=== PATIENT | male | born 1980 | race Caucasian/White ===

== ENCOUNTER 2018-04-29 22:56 | Inpatient (IN) | END 2018-05-01 17:35 | disposition home or self-care (01) | DRG 310 ==

== ENCOUNTER 2019-01-02 13:17 | Emergency (ER) | payer MEDICAID ==
[~2019-01-02] VITALS: Ht 175.3 cm; Wt 91.3 kg
[~2019-01-02 13:17] MED LIST: ASPI-831 PO; METO-448 PO
[2019-01-02 13:27] VITALS: Ht 175.3 cm; Wt 91.3 kg
[2019-01-02] MEDS ORDERED: IBUP800T48 PO (16:29)
--- NOTE | 2019-01-02 16:32 | ERD ---
ER Documentation Chief Complaint Chief Complaint PT BIB SELF FOR CP 12/23 NON-RADIATING X 1 WEEK HPI This is a 38-year-old male with no past medical history the presents to the emergency department complaining of chest pain for 1 week. The patient states the chest pain is a stabbing-like pain. Is exacerbated by movement. He denies any recent trauma to his chest wall. He said no recent travel or prolonged immobilization denies any shortness of breath at rest or exertion. The pain is 10 out of 10 in intensity. He did not take any analgesic medication prior to arrival. The patient does not smoke tobacco and has no history of coronary artery disease in his first-degree relatives. ROS All systems reviewed and are negative except as per history of present illness. Medications Home Meds Active Scripts Ibuprofen* (Motrin*) 800 Mg Tab, 800 MG PO Q6H PRN for PAIN AND OR ELEVATED TEMP, #30 TAB Prov:FAUSTO COPE MD 01/02/19 Aspirin (Aspirin) 81 Mg Chew, 81 MG PO DAILY for 30 Days, #30 TAB Prov:ANUM MAYER MD 04/30/18 Metoprolol Tartrate* (Lopressor*) 25 Mg Tab, 12.5 MG PO Q12 for 14 Days, #30 TAB Prov:ANUM MAYER MD 04/30/18 Allergies Allergies: Coded Allergies: No Known Allergy (Unverified , 01/02/19) PMhx/Soc History of Surgery: No Anesthesia Reaction: No Hx Neurological Disorder: No Hx Respiratory Disorders: No Hx Cardiac Disorders: No Hx Psychiatric Problems: No Hx Miscellaneous Medical Probl: No Hx Alcohol Use: No Hx Substance Use: No Hx Tobacco Use: No Smoking Status: Never smoker Physical Exam Vitals Vital Signs Date Temp Pulse Resp B/P (MAP) Pulse Ox O2 O2 Flow FiO2 Time Delivery Rate 01/02/19 98.6 79 18 141/92 100 13:27 (108) Physical Exam Constitutional:Well-developed. Well-nourished. HEENT:Normocephalic. Atraumatic.Pupils were equal round reactive to light. Moist mucous membranes.No tonsillar exudates. Neck: No nuchal rigidity. No lymphadenopathy. No posterior cervical spine tenderness or step-offs. Respiratory: Not using accessory muscles of respiration.Lungs were clear to auscultation bilaterally. No rhonchi. No rales. No wheezing. Cardiovascular: Regular rate regular rhythm.No murmurs. No rubs were appr eciated.S1, S2 normal. Distal pulses are palpable 2+ bilaterally. Bilateral reproducible chest wall tenderness with no crepitus no ecchymosis no flail chest GI: Abdomen was soft. Nontender. Non Distended. No pulsatile abdominal masses or bruits. No rebound. No guarding. Bowel sounds were present and normal. Muscle skeletal: Full range of motion of both the upper and lower extremities bilaterally.Normal muscle tone.No assymetrical calf tenderness or swelling. Skin: No petechia, no purpura. No lesions on the palms or the soles of the feet. No maculopapular rash. NEURO: Patient was alert, awake, orientated x3.No facial droop. Gait observed and normal with no ataxia.Speech had regular rate and rhythm. No focal neurological deficits. Result Diagram: 01/02/19 1452 01/02/19 1452 Results 24 hrs Laboratory Tests Test 01/02/19 14:52 White Blood Count 8.9 10^3/ul Red Blood Count 5.65 10^6/ul Hemoglobin 16.3 g/dl Hematocrit 46.8 % Mean Corpuscular Volume 82.8 fl Mean Corpuscular Hemoglobin 28.8 pg Mean Corpuscular Hemoglobin Concent 34.8 g/dl Red Cell Distribution Width 12.4 % Platelet Count 263 10^3/UL Mean Platelet Volume 10.9 fl Immature Granulocytes % 0.200 % Neutrophils % 70.6 % Lymphocytes % 21.2 % Monocytes % 6.1 % Eosinophils % 1.2 % Basophils % 0.7 % Nucleated Red Blood Cells % 0.0 /100WBC Immature Granulocytes # 0.020 10^3/ul Neutrophils # 6.3 10^3/ul Lymphocytes # 1.9 10^3/ul Monocytes # 0.5 10^3/ul Eosinophils # 0.1 10^3/ul Basophils # 0.1 10^3/ul Nucleated Red Blood Cells # 0.0 10^3/ul Prothrombin Time 12.9 Sec Prothrombin Time Ratio 1.0 INR International Normalized Ratio 0.96 Activated Partial Thromboplast Time 28.9 Sec Sodium Level 145 mmol/L Potassium Level 4.0 mmol/L Chloride Level 104 mmol/L Carbon Dioxide Level 27 mmol/L Anion Gap 14 Blood Urea Nitrogen 20 mg/dl Creatinine 0.72 mg/dl Est Glomerular Filtrat Rate mL/min > 60 mL/min Glucose Level 115 mg/dl Calcium Level 10.0 mg/dl Total Bilirubin 0.8 mg/dl Direct Bilirubin 0.00 mg/dl Indirect Bilirubin 0.8 mg/dl Aspartate Amino Transf (AST/SGOT) 26 IU/L Alanine Aminotransferase (ALT/SGPT) 32 IU/L Alkaline Phosphatase 92 IU/L Creatine Kinase 119 IU/L Creatine Kinase Index 0.4 Creatinine Kinase MB (Mass) 0.47 ng/ml Troponin I < 0.012 ng/ml B-Type Natriuretic Peptide 24 PG/ML Total Protein 8.2 g/dl Albumin 4.8 g/dl Globulin 3.40 g/dl Albumin/Globulin Ratio 1.41 Procedures/MDM The patient presented to the emergency department complaining of chest pain. My clinical evaluation and workup was to distinguish minor causes of chest pain from acute life threatening cardiopulmonary causes such as myocardial infarction, pulmonary embolism, aortic dissection, esophageal rupture, cardiac tamponade, 12 Lead EKG tracing ordered and reviewed by myself showed: Normal sinus rhythm of 78 bpm and no arrhythmia. WI interval normal. QRS duration normal. No ST segment elevation No ST segment depression. No changes consistent with acute ischemia. The patients chest pain was reproduced by palpation and horizontal flexion of the arms. It was my clinical impression that the pain was a result of inflammation of the skin and subcutaneous structures of the chest wall versus my ocardial ischemia. I felt the patient had low-risk chest pain and could therefore be safely discharged with close follow-up. Departure Diagnosis: Primary Impression: Costochondritis Condition: Fair Patient Instructions: CostFAUSTO Pérez MD Jan 02, 2019 16:32
[2019-01-02 16:39] VITALS: BP 134/77; PULSE 70; RESP 18
== END 2019-01-02 17:15 | disposition home or self-care (01) ==
LOC: E/R 13:17
DX: M94.0 Chondrocostal junction syndrome [Tietze] (principal); Z79.82 Long term (current) use of aspirin
CPT/HCPCS: 71045; 80053; 82550; 82553; 83880; 84484; 85025; 85610; 85730; 93005; Z7502

== ENCOUNTER 2019-02-23 04:46 | Emergency (ER) | payer MEDICAID ==
[~2019-02-23] VITALS: Ht 177.8 cm; Wt 94.3 kg
[~2019-02-23 04:46] MED LIST changes: +IBUP800T48 PO
[2019-02-23 04:52] VITALS: BP 141/88; PULSE 87; RESP 20; Ht 177.8 cm; Wt 94.3 kg
[2019-02-23] MEDS ORDERED: KETOROLAC 60 MG INJ IM STA (06:22)
[2019-02-23] MEDS ORDERED: DIAZEPAM 5 MG TAB PO ONE (06:30)
[2019-02-23] MEDS ORDERED: DEXAMETHASONE 10 MG/ML 1 ML INJ IM ONE (06:30)
[2019-02-23] MEDS ORDERED: CYCL10TA7 PO (07:57)
[2019-02-23] MEDS ORDERED: MED4DP PO (07:57)
[2019-02-23] MEDS ORDERED: NAPR-985 PO (07:57)
[2019-02-23] MEDS ORDERED: HYDR-4011 PO (07:57)
--- NOTE | 2019-02-23 08:58 | ERD ---
ER Documentation Chief Complaint Chief Complaint low back pain x 8 days. denies trauma HPI 38-year-old male presenting with low back pain x8 days. Patient denies any trauma but worse with movement. He has pain with walking. Denies any numbness or tingling to his legs and denies any fevers. He denies any saddle anesthesia and denies any changes in urination or bowel movement. Denies other medical problems. NKDA. Surgical history denies. Social history denies ROS All systems reviewed and are negative except as per history of present illness. Medications Home Meds Active Scripts Methylprednisolone* (Medrol* DOSE PACK) 4 Mg/Dose-Pack Tab.ds.pk, 4 MG PO . DIRECTED, #1 PACKET Prov:KALYN METZGER PA-C 02/23/19 Cyclobenzaprine Hcl* (Cyclobenzaprine Hcl*) 10 Mg Tablet, 10 MG PO TID, #15 TAB Prov:KALYN METZGER PA-C 02/23/19 Naproxen* (Naprosyn*) 500 Mg Tablet, 500 MG PO BID PRN for PAIN AND/OR INFLAMMATION, #30 TAB Prov:KALYN METZGER PA-C 02/23/19 Hydrocodone/Acetaminophen ([place] 5-325 Tablet) 1 Each Tablet, 1 TAB PO Q6H PRN for PAIN, #7 TAB Prov:KALYN METZGER PA-C 02/23/19 Ibuprofen* (Motrin*) 800 Mg Tab, 800 MG PO Q6H PRN for PAIN AND OR ELEVATED TEMP , #30 TAB Prov:FAUSTO COPE MD 01/02/19 Aspirin (Aspirin) 81 Mg Chew, 81 MG PO DAILY for 30 Days, #30 TAB Prov:ANUM MAYER MD 04/30/18 Metoprolol Tartrate* (Lopressor*) 25 Mg Tab, 12.5 MG PO Q12 for 14 Days, #30 TAB Prov:ANUM MAYER MD 04/30/18 Allergies Allergies: Coded Allergies: No Known Allergy (Unverified , 01/02/19) PMhx/Soc Medical and Surgical Hx: pt denies Medical Hx, pt denies Surgical Hx History of Surgery: No Anesthesia Reaction: No Hx Neurological Disorder: No Hx Respiratory Disorders: No Hx Cardiac Disorders: No Hx Psychiatric Problems: No Hx Miscellaneous Medical Probl: No Hx Alcohol Use: No Hx Substance Use: No Hx Tobacco Use: No Smoking Status: Never smoker FmHx Family History: No diabetes, No coronary disease, No other Physical Exam Vitals Vital Signs Date Temp Pulse Resp B/P (MAP) Pulse Ox O2 O2 Flow FiO2 Time Delivery Rate 02/23/19 98.3 87 20 141/88 100 04:52 (105) Physical Exam GENERAL: The patient is well-appearing, well-nourished, in no acute distress CHEST: Clear to auscultation bilaterally. There are no rales, wheezes or rhonchi. HEART: Regular rate and rhythm. No murmurs, clicks, rubs or gallops. ABDOMEN:Soft, nontender and nondistended. Good bowel sounds. No rebound or guarding. No gross peritonitis. No gross organomegaly or masses. BACK: Tender to palpation along lumbar spine. No paraspinous muscle pain. EXTREMITIES: Equal pulses bilaterally. There is no peripheral clubbing, cyanosis or edema. No focal swelling or erythema. Full range of motion. Grossly neurovascularly intact. NEUROLOGIC: Alert and oriented. Cranial nerves II through XII intact. Motor strength in all 4 extremities with 5 out of 5 strength. Sensation grossly intact. Normal speech and gait. SKIN: There is no apparent rash or petechiae. The skin is warm and dry. Results 24 hrs Current Medications Medications Dose Sig/Theodore Start Time Status Last (Trade) Ordered Route PRN Stop Time Admin Dose Reason Admin Diazepam 5 mg ONCE ONCE 02/23/19 DC 02/23/19 (Valium) PO 06:30 06:33 02/23/19 06:31 Ketorolac 60 mg ONCE STAT 02/23/19 DC 02/23/19 Tromethamine IM 06:22 06:33 (Toradol) 02/23/19 06:23 10 mg ONCE ONCE 02/23/19 DC 02/23/19 Dexamethasone IM 06:30 06:33 (Decadron) 02/23/19 06:31 Procedures/MDM DIAGNOSTIC IMAGING REPORT Patient: SEBASTIAN BARAHONA : 1980 Age: 38 Sex: M MR #: [id number] DOS: 06/11/19 0622 Ordering MD: ALBERT METZGER PA-C Location: [facility] BEDS AT [facility] Room/Bed: PROCEDURE: Lumbar spine series CLINICAL INDICATION: Back pain TECHNIQUE: AP and lateral views lumbar spine were obtained COMPARISON: None FINDINGS: No evidence acute fractures or subluxations. Minimal degenerative enthesopathy involving the lower thoracic and lumbar spine. No focal bony blastic or lytic lesions. Posterior elements are intact. IMPRESSION: Minimal degenerative changes as above without acute fractures or subluxations. ER course: Valium, Decadron and Toradol given in ED. MDM: 38-year-old male presenting with back pain. I have low suspicion for acute fracture dislocation. I have low suspicion for neuro deficit. I have low suspicion for discitis, epidural abscess or cauda equina. Patient is musculoskeletal strain with degenerative changes of the spine likely causing pain and impingement. Patient is discharged with supportive medications and told to follow-up with primary care within 1 to 2 days for close evaluation. All questions answered at discharge Departure Diagnosis: Primary Impression: Back pain Condition: Stable Patient Instructions: Back Pain (Acute Or Chronic) Referrals: [facility] YOU HAVE RECEIVED A MEDICAL SCREENING EXAM AND THE RESULTS INDICATE THAT YOU DO NOT HAVE A CONDITION THAT REQUIRES URGENT TREATMENT IN THE EMERGENCY DEPARTMENT. FURTHER EVALUATION AND TREATMENT OF YOUR CONDITION CAN WAIT UNTIL YOU ARE SEEN IN YOUR DOCTORS OFFICE WITHIN THE NEXT 1-2 DAYS. IT IS YOUR RESPONSIBILITY TO MAKE AN APPOINTMENT FOR FOLOW-UP CARE. IF YOU HAVE A PRIMARY DOCTOR --you should call your primary doctor and schedule an appointment IF YOU DO NOT HAVE A PRIMARY DOCTOR YOU CAN CALL OUR PHYSICIAN REFERRAL HOTLINE AT IF YOU CAN NOT AFFORD TO SEE A PHYSICIAN YOU CAN CHOSE FROM THE FOLLOWING [facility] [address] [facility]. [facility] [address] [facility] [facility] [address] [facility] [facility] [address] [facility]. [facility] [address] [facility]. [facility]. [address] Additional Instructions: FOLLOW UP WITH YOUR PRIMARY CARE PHYSICIAN TOMORROW.Return to this facility if you are not improving as expected. KALYN METZGER PA-C Feb 23, 2019 08:58
== END 2019-02-23 08:18 | disposition home or self-care (01) ==
LOC: FTE 04:46
DX: M54.5 Low back pain (principal); Z79.82 Long term (current) use of aspirin
CPT/HCPCS: 72100; 96372; J1100; J1885; Z7502; Z7610